=== PATIENT | female | born 1940 | race Caucasian/White ===

== ENCOUNTER 2018-03-01 19:59 | Emergency (ER) | payer MEDICARE, OTHER ==
[~2018-03-01] VITALS: Ht 149.9 cm; Wt 83.5 kg
[~2018-03-01 19:59] MED LIST: ASCO500 PO; CALCAVITDA PO; CHOL10002; Ginger250 MG; MAGCHL64ER PO; METO25ER PO; MILK THISTLE140 MG PO; MULTI VITAMIN1 EACH PO; POTCIT10 PO; TURMERIC500 M1 PO; XARELTO15 MG PO; [UNRECOGNIZED DRUG - OTHER]
[2018-03-01] MEDS ORDERED: WARF1 (20:33)
[2018-03-01 20:55] LABS: Calcium, Ionized (POC) 1.14 mmol/L (1.10-1.46); Chloride (POC) 107 mmol/L (98-108); Creatinine (POC) 0.7 mg/dL (0.6-1.0); Glucose (ISTAT POC) 95 mg/dL (70-99); Hemoglobin (POC) 15.3 g/dL (12.0-16.0); Potassium (POC) 3.9 mmol/L (3.5-5.5); Sodium (POC) 142 mmol/L (135-148); Total CO2 (POC) 23 mmol/L (21-32)
[2018-03-01 21:15] LABS: International Normalized Ratio 1.92; Prothrombin Time Results 20.4 Sec (9.7-11.5)
[2018-03-01] MEDS ORDERED: HYDR1TAB94 PO (21:43)
== END 2018-03-01 22:05 | disposition home or self-care (01) ==
LOC: ER 19:59
PROVIDERS: Emergency Medicine
DX: S32.010A Wedge compression fracture of first lumbar vertebra, initial encounter for closed fracture (principal); S22.089A Unspecified fracture of T11-T12 vertebra, initial encounter for closed fracture; S30.0XXA Contusion of lower back and pelvis, initial encounter; I48.91 Unspecified atrial fibrillation; Z79.899 Other long term (current) drug therapy; Z79.01 Long term (current) use of anticoagulants; W19.XXXA Unspecified fall, initial encounter
CPT/HCPCS: 36415; 70450; 72100; 73502; 80047; 85014; 85610; 99284

== ENCOUNTER 2021-03-12 11:56 | Emergency (ER) | payer MEDICARE, OTHER ==
[~2021-03-12] VITALS: Ht 149.9 cm; Wt 49.9 kg
[~2021-03-12 11:56] MED LIST changes: +HYDR1TAB94 PO; +WARF1
[2021-03-12 12:21] LABS: BASOPHILS ABSOLUTE AUTO 0.03 K/mm3 (0.00-0.23); BASOPHILS PERCENT AUTO 1 % (0-2); EOSINOPHILS ABSOLUTE AUTO 0.02 K/mm3 (0.00-0.68); EOSINOPHILS PERCENT AUTO 0 % (0-6); Hematocrit 45.7 % (33.0-51.0); Hemoglobin 15.1 g/dL (11.5-16.0); IMMATURE GRAN ABSOLUTE AUTO 0.01 K/mm3 (0.00-0.10); IMMATURE GRAN PERCENT AUTO 0 % (0-1); LYMPHOCYTES ABSOLUTE AUTO 1.32 K/mm3 (0.84-5.20); LYMPHOCYTES PERCENT AUTO 20 % (21-46); MONOCYTES ABSOLUTE AUTO 0.41 K/mm3 (0.16-1.47); MONOCYTES PERCENT AUTO 6 % (4-13); Mean Corpuscular HGB 29.7 pg (26.0-34.0); Mean Corpuscular Volume 90 fL (80-100); NEUTROPHILS ABSOLUTE AUTO 4.84 K/mm3 (1.96-9.15); NEUTROPHILS PERCENT AUTO 73 % (41-73); Platelet Count 329 K/mm3 (150-400); RDW Coefficient Variation 12.5 % (11.7-14.2); RDW Standard Deviation 41.1 fL (35.1-46.3); Red Blood Cell Count 5.08 M/mm3 (3.80-5.20); White Blood Cell Count 6.63 K/mm3 (4.00-11.30)
[2021-03-12 12:46] LABS: Alanine Aminotransfer (ALT/SGP 21 U/L (12-78); Albumin, Blood 3.8 g/dL (3.4-5.0); Alk Phos 55 U/L (50-136); Anion Gap 6 mmol/L (6-16); Aspartate Aminotrans (AST/SGOT 23 U/L (12-37); Bilirubin, Total 0.5 mg/dL (0.1-1.0); Blood Urea Nitrogen 15 mg/dL (8-24); Bun/Creatinine Ratio 28.6 (12.0-20.0); CO2, Blood 23 mmol/L (21-32); Calcium, Blood 8.9 mg/dL (8.5-10.1); Chloride, Blood 109 mmol/L (98-108); Creatinine, Blood 0.52 mg/dL (0.40-1.00); Globulin, Blood 3.7 g/dL (2.2-4.0); Glomerular Filtration Rate >60 (60-); Glucose, Blood 108 mg/dL (70-99); Potassium, Blood 3.8 mmol/L (3.5-5.5); Sodium, Blood 138 mmol/L (136-145); Total Protein, Blood 7.5 g/dL (6.4-8.2)
[2021-03-12 13:53] LABS: Source, Urine Clean Catch
[2021-03-12 13:57] LABS: Bilirubin, Urine Neg (Neg); Blood, Urine Neg (Neg); Glucose Qualitative, Urine Neg (Neg); Ketones, Urine 2+ (Neg); Leukocyte Esterase, Urine 1+ (Neg); Nitrite, Urine Neg (Neg); Protein, Urine Neg (Neg); Urobilinogen, Urine NORM (Normal)
[2021-03-12 14:02] LABS: Appearance, Urine Clear (Clear); Color, Urine Yellow (P-Yellow)
[2021-03-12 14:06] LABS: Red Blood Cells, Urine 0-2 /hpf (0-2)
[2021-03-12 14:07] LABS: Bacteria Many /hpf; Squamous Epithelial Cells Rare /hpf (Few)
[2021-03-12] MEDS ORDERED: ONDA4ODT MM (17:24)
== END 2021-03-12 17:43 | disposition home or self-care (01) ==
LOC: ER 11:56
PROVIDERS: Physician Assistant
DX: R10.31 Right lower quadrant pain (principal); R10.32 Left lower quadrant pain; R11.2 Nausea with vomiting, unspecified; Z79.01 Long term (current) use of anticoagulants; Z79.899 Other long term (current) drug therapy
CPT/HCPCS: 36415; 74177; 80053; 81001; 85025; 87086; 96374; 99284-25; J2405; J7030; P9612; Q9967

== ENCOUNTER 2021-12-17 14:05 | Emergency (ER) | payer MEDICARE, OTHER ==
[~2021-12-17] VITALS: Ht 147.3 cm; Wt 39.9 kg
[~2021-12-17 14:05] MED LIST changes: +ONDA4ODT MM
[2021-12-17] MEDS ORDERED: LIDO700A20 TOP (16:15)
[2021-12-17] MEDS ORDERED: Robaxin750 MG PO (16:15)
== END 2021-12-17 16:36 | disposition home or self-care (01) ==
LOC: ER 14:05
DX: M54.50 Low back pain, unspecified (principal); G89.29 Other chronic pain; I48.91 Unspecified atrial fibrillation; M81.0 Age-related osteoporosis without current pathological fracture; Z79.899 Other long term (current) drug therapy
CPT/HCPCS: 72131; 99283-25; A9270

== ENCOUNTER 2022-01-30 09:24 | Inpatient (IN) | payer MEDICARE, OTHER ==
[~2022-01-30] VITALS: Ht 142.2 cm; Wt 44.5 kg
[~2022-01-30 09:24] MED LIST changes: +LIDO700A20 TOP; +Robaxin750 MG PO; -WARF1; +WARF1 PO
[2022-01-30 11:36] LABS: BASOPHILS ABSOLUTE AUTO 0.03 K/mm3 (0.00-0.23); BASOPHILS PERCENT AUTO 0 % (0-2); EOSINOPHILS PERCENT AUTO 0 % (0-6); Hematocrit 42.2 % (33.0-51.0); Hemoglobin 13.7 g/dL (11.5-16.0); IMMATURE GRAN ABSOLUTE AUTO 0.11 K/mm3 (0.00-0.10); IMMATURE GRAN PERCENT AUTO 1 % (0-1); LYMPHOCYTES ABSOLUTE AUTO 0.68 K/mm3 (0.84-5.20); LYMPHOCYTES PERCENT AUTO 5 % (21-46); MONOCYTES ABSOLUTE AUTO 1.08 K/mm3 (0.16-1.47); MONOCYTES PERCENT AUTO 7 % (4-13); Mean Corpuscular HGB 29.6 pg (26.0-34.0); Mean Corpuscular HGB Conc 32.5 g/dL (31.5-36.5); Mean Corpuscular Volume 91 fL (80-100); NEUTROPHILS ABSOLUTE AUTO 13.19 K/mm3 (1.96-9.15); NEUTROPHILS PERCENT AUTO 87 % (41-73); Platelet Count 347 K/mm3 (150-400); RDW Coefficient Variation 12.8 % (11.7-14.2); RDW Standard Deviation 42.3 fL (35.1-46.3); Red Blood Cell Count 4.63 M/mm3 (3.80-5.20); White Blood Cell Count 15.09 K/mm3 (4.00-11.30)
[2022-01-30 11:59] LABS: Alanine Aminotransfer (ALT/SGP 28 U/L (12-78); Albumin, Blood 3.5 g/dL (3.4-5.0); Albumin/Globulin Ratio 0.9 (0.8-1.8); Alk Phos 83 U/L (50-136); Anion Gap 4 mmol/L (6-16); Aspartate Aminotrans (AST/SGOT 27 U/L (12-37); Bilirubin, Total 0.4 mg/dL (0.1-1.0); Blood Urea Nitrogen 34 mg/dL (8-24); Bun/Creatinine Ratio 68.3 (12.0-20.0); CO2, Blood 29 mmol/L (21-32); Calcium, Blood 9.3 mg/dL (8.5-10.1); Chloride, Blood 110 mmol/L (98-108); Glomerular Filtration Rate >60 (60-); Glucose, Blood 127 mg/dL (70-99); Potassium, Blood 4.3 mmol/L (3.5-5.5); Sodium, Blood 143 mmol/L (136-145); Total Protein, Blood 7.5 g/dL (6.4-8.2)
[2022-01-30 12:01] LABS: Prothrombin Time Results 39.6 Sec (9.7-11.5)
[2022-01-30 12:30] LABS: International Normalized Ratio 4.14
[2022-01-30 14:10] LABS: Influenza A, PCR NEGATIVE (NEGATIVE); Influenza B, PCR NEGATIVE (NEGATIVE); Resp Syncytial Virus, PCR NEGATIVE (NEGATIVE); SARS-Cov-2 (COVID-19) PCR, MMC NEGATIVE (NEGATIVE)
--- NOTE | 2022-01-30 14:45 | NUR ---
ARRIVAL TO UNIT FROM ED. PLEASANT & COOPERATIVE BUT FORGETFUL. DENIES PAIN, EVEN w/ REPOSITIONING. CANNOT RECALL MEDICATIONS SO WILL CALL PCP TO CLARIFY. BED ALARM SET.
[2022-01-30] MEDS ORDERED: DONEPEZIL HCL10 MG PO (15:40)
[2022-01-30] MEDS ORDERED: ALEN70 PO (15:41)
[2022-01-30] MEDS ORDERED: FAMO20 PO (15:41)
--- NOTE | 2022-01-30 19:16 | NUR ---
SHIFT SUMMARY SINCE ARRIVAL TO UNIT, HAS BEEN PLEASANT BUT NEEDING FREQ REMINDERS WHERE & WHY SHE IS HERE. DR BARRAZA CONSULTED. MEDICATED PRIOR TO TRANSPORT TO CT SCAN; OTHER THAN THAT PT HAS DENIED PAIN EVEN w/ REPOSITIONING.
[2022-01-31 04:39] LABS: Hematocrit 37.3 % (33.0-51.0); Mean Corpuscular HGB 29.4 pg (26.0-34.0); Mean Corpuscular HGB Conc 32.2 g/dL (31.5-36.5); Mean Corpuscular Volume 91 fL (80-100); Mean Platelet Volume 9.2 fL (9.1-12.4); Platelet Count 316 K/mm3 (150-400); RDW Standard Deviation 42.2 fL (35.1-46.3); Red Blood Cell Count 4.08 M/mm3 (3.80-5.20); White Blood Cell Count 11.71 K/mm3 (4.00-11.30)
[2022-01-31 04:51] LABS: International Normalized Ratio 1.37; Prothrombin Time Results 14.1 Sec (9.7-11.5)
[2022-01-31 05:04] LABS: Anion Gap 5 mmol/L (6-16); Blood Urea Nitrogen 23 mg/dL (8-24); Bun/Creatinine Ratio 43.6 (12.0-20.0); CO2, Blood 27 mmol/L (21-32); Calcium, Blood 8.6 mg/dL (8.5-10.1); Chloride, Blood 108 mmol/L (98-108); Creatinine, Blood 0.53 mg/dL (0.40-1.00); Glomerular Filtration Rate >60 (60-); Glucose, Blood 134 mg/dL (70-99); Potassium, Blood 4.3 mmol/L (3.5-5.5); Sodium, Blood 140 mmol/L (136-145)
--- NOTE | 2022-01-31 13:12 | NUR ---
patient with no c/o pain this a.m.- daughter at bedside. To surgery via bed at 1145. patient has been NPO.Toprol given as per order this a.m.
--- NOTE | 2022-01-31 13:24 | NUR ---
01/31/22 1324 Marvel Verdin PATIENT ARRIVED TO OR WITH HERNANDEZ CATH
--- NOTE | 2022-01-31 15:40 | NUR ---
PT. TO ROOM #212 FROM PACU AT 1525. DENIES PAIN. REQUEST REPOSITIONING, PILLOWS USED, TOLERATE WELL. HERNANDEZ TO GRAVITY, CLR. YELLOW. IVF INFUSING, LR. O2 ON AT 2L PER NC, VSS. CALL LIGHT IN REACH AND FAMILY MEMBER IN ROOM.
--- NOTE | 2022-01-31 18:17 | NUR ---
PT. C/O BACK PAIN AND ROXICODONE 5 MG PO GIVEN WITH FOOD. PATIENT WITH GOOD APPETITE, ATE 100% DINNER.
--- NOTE | 2022-02-01 04:12 | NUR ---
SUMMARY PT CONFUSION INCREASED DURING THE SHIFT. PT DAUGHTER STAYED THE NIGHT WITH PT AND KEPT HER CALM. PT COMPLAINED OF BACK PAIN MOSTLY AND WAS REPOSITIONED FREQUENTLY AND MEDICATED ORDERED. PT DRESSING C/D/I. PT HERNANDEZ IS DRAINING TO GRAVITY. PT CURRENTLY SLEEPING AND IN NO DISTRESS. CALL LIGHT IN REACH.
[2022-02-01 04:44] LABS: Hematocrit 36.2 % (33.0-51.0); Hemoglobin 11.3 g/dL (11.5-16.0); Mean Corpuscular HGB Conc 31.2 g/dL (31.5-36.5); Mean Corpuscular Volume 93 fL (80-100); Mean Platelet Volume 9.3 fL (9.1-12.4); Platelet Count 297 K/mm3 (150-400); RDW Coefficient Variation 12.8 % (11.7-14.2); RDW Standard Deviation 43.6 fL (35.1-46.3); White Blood Cell Count 11.58 K/mm3 (4.00-11.30)
[2022-02-01 04:56] LABS: Albumin, Blood 2.5 g/dL (3.4-5.0); Anion Gap 4 mmol/L (6-16); Blood Urea Nitrogen 22 mg/dL (8-24); Bun/Creatinine Ratio 37.3 (12.0-20.0); CO2, Blood 28 mmol/L (21-32); Calcium, Blood 8.6 mg/dL (8.5-10.1); Chloride, Blood 109 mmol/L (98-108); Creatinine, Blood 0.59 mg/dL (0.40-1.00); Glomerular Filtration Rate >60 (60-); Glucose, Blood 123 mg/dL (70-99); Phosphorus, Blood 3.2 mg/dL (2.5-4.9); Potassium, Blood 4.4 mmol/L (3.5-5.5); Sodium, Blood 141 mmol/L (136-145)
[2022-02-01 04:58] LABS: International Normalized Ratio 1.04; Prothrombin Time Results 10.9 Sec (9.7-11.5)
[2022-02-01 12:59] LABS: Influenza A, PCR NEGATIVE (NEGATIVE); Influenza B, PCR NEGATIVE (NEGATIVE); Resp Syncytial Virus, PCR NEGATIVE (NEGATIVE); SARS-Cov-2 (COVID-19) PCR, MMC NEGATIVE (NEGATIVE)
--- NOTE | 2022-02-01 13:36 | NUR ---
Spiritual Care Visit. Pt. is awake in bed, and welcomes my visit. Pt. is unsettled about the delay in her discharge. Pt. expects to be released to a local for therapy. At times Pt. seemed confused. Listen empathetically. Pt. welcomed the opportunity for pastoral prayer. Prayed for Pt. Pt. verbalized gratittude for the spiritual visit.
--- NOTE | 2022-02-01 15:46 | NUR ---
report phoned to [facility] at [facility]
--- NOTE | 2022-02-01 16:46 | NUR ---
1645 DISCHARGED VIA NON EMERGENCY TRANSPORT TO [facility] ACCOMPANIED BY THIERRY QUISPE.
== END 2022-02-01 17:00 | DRG 481 ==
LOC: ER 09:24 → SURS 12:16
PROVIDERS: Emergency Medicine; Internal Medicine; Orthopaedic Surgery; ADMIT Internal Medicine
PROC: 0QH634Z Insertion of Internal Fixation Device into Right Upper Femur, Percutaneous Approach (ICD-10-PCS; principal; 2022-01-31 12:30)
DX: S72.141A Displaced intertrochanteric fracture of right femur, initial encounter for closed fracture (principal); I48.20 Chronic atrial fibrillation, unspecified; Z20.822 Contact with and (suspected) exposure to COVID-19; M81.0 Age-related osteoporosis without current pathological fracture; R54 Age-related physical debility; F03.90 Unspecified dementia, unspecified severity, without behavioral disturbance, psychotic disturbance, mood disturbance, and anxiety; K21.9 Gastro-esophageal reflux disease without esophagitis; K58.9 Irritable bowel syndrome, unspecified; M54.2 Cervicalgia; I48.0 Paroxysmal atrial fibrillation; R79.1 Abnormal coagulation profile; W06.XXXA Fall from bed, initial encounter; Y92.009 Unspecified place in unspecified non-institutional (private) residence as the place of occurrence of the external cause; Z79.899 Other long term (current) drug therapy; Z79.01 Long term (current) use of anticoagulants; Z79.83 Long term (current) use of bisphosphonates; Z79.891 Long term (current) use of opiate analgesic
CPT/HCPCS: 0241U; 36415; 51702; 70450; 72125; 73502; 73552; 73700; 76377; 80048; 80053; 80069; 85025; 85027; 85610; 93005; 93010; 97110; 97162; 97166; 97530; 99285-25; A9270; C1713; J0690; J1100; J2001; J2370; J2405; J2704; J3010; J7120

== ENCOUNTER 2022-04-07 09:45 | Emergency (ER) | payer MEDICARE, OTHER ==
[~2022-04-07] VITALS: Ht 149.9 cm; Wt 38.1 kg
[~2022-04-07 09:45] MED LIST changes: +ALEN70 PO; +DONEPEZIL HCL10 MG PO; +FAMO20 PO
[2022-04-07] MEDS ORDERED: MIRT15 PO (10:26)
[2022-04-07] MEDS ORDERED: Coumadin2 MG PO (10:26)
[2022-04-07 12:58] LABS: International Normalized Ratio 1.19; Prothrombin Time Results 12.4 Sec (9.7-11.5)
== END 2022-04-07 13:25 | disposition home or self-care (01) ==
LOC: ER 09:45
PROVIDERS: Emergency Medicine
DX: S70.01XA Contusion of right hip, initial encounter (principal); W19.XXXA Unspecified fall, initial encounter; I48.91 Unspecified atrial fibrillation; Z79.01 Long term (current) use of anticoagulants; Z79.899 Other long term (current) drug therapy
CPT/HCPCS: 36415; 73502; 85610

== ENCOUNTER 2022-07-21 17:24 | Inpatient (IN) | payer MEDICARE, OTHER ==
[~2022-07-21] VITALS: Ht 147.3 cm; Wt 43.1 kg
[~2022-07-21 17:24] MED LIST changes: +Coumadin2 MG PO; +MIRT15 PO
[2022-07-21 18:15] LABS: BASOPHILS ABSOLUTE AUTO 0.05 K/mm3 (0.00-0.23); BASOPHILS PERCENT AUTO 0 % (0-2); EOSINOPHILS PERCENT AUTO 2 % (0-6); Hematocrit 39.5 % (33.0-51.0); IMMATURE GRAN ABSOLUTE AUTO 0.16 K/mm3 (0.00-0.10); IMMATURE GRAN PERCENT AUTO 1 % (0-1); LYMPHOCYTES ABSOLUTE AUTO 1.81 K/mm3 (0.84-5.20); LYMPHOCYTES PERCENT AUTO 13 % (21-46); MONOCYTES ABSOLUTE AUTO 0.91 K/mm3 (0.16-1.47); MONOCYTES PERCENT AUTO 7 % (4-13); Mean Corpuscular HGB Conc 32.9 g/dL (31.5-36.5); Mean Corpuscular Volume 91 fL (80-100); Mean Platelet Volume 9.5 fL (9.1-12.4); NEUTROPHILS ABSOLUTE AUTO 10.45 K/mm3 (1.96-9.15); NEUTROPHILS PERCENT AUTO 77 % (41-73); Platelet Count 312 K/mm3 (150-400); RDW Coefficient Variation 13.8 % (11.7-14.2); RDW Standard Deviation 46.4 fL (35.1-46.3); Red Blood Cell Count 4.34 M/mm3 (3.80-5.20); White Blood Cell Count 13.58 K/mm3 (4.00-11.30)
[2022-07-21 18:26] LABS: Albumin, Blood 3.3 g/dL (3.4-5.0); Albumin/Globulin Ratio 0.9 (0.8-1.8); Bilirubin, Total 0.2 mg/dL (0.1-1.0); Bun/Creatinine Ratio 39.8 (12.0-20.0); Calcium, Blood 9.4 mg/dL (8.5-10.1); Creatinine, Blood 0.63 mg/dL (0.40-1.00); Globulin, Blood 3.6 g/dL (2.2-4.0); Potassium, Blood 4.3 mmol/L (3.5-5.5); Total Protein, Blood 6.9 g/dL (6.4-8.2)
[2022-07-21 18:59] LABS: International Normalized Ratio 3.15; Prothrombin Time Results 30.7 Sec (9.7-11.5)
[2022-07-22 00:26] LABS: Hematocrit 36.1 % (33.0-51.0); Hemoglobin 11.6 g/dL (11.5-16.0)
[2022-07-22 04:52] LABS: Hemoglobin 10.4 g/dL (11.5-16.0)
[2022-07-22 05:20] LABS: International Normalized Ratio 1.22
[2022-07-22 05:25] LABS: Prothrombin Time Results 12.6 Sec (9.7-11.5)
[2022-07-22 07:19] LABS: Hematocrit 31.5 % (33.0-51.0); Hemoglobin 10.4 g/dL (11.5-16.0)
[2022-07-22 09:47] LABS: SARS-Cov-2 (COVID-19) PCR, MMC NEGATIVE (NEGATIVE)
[2022-07-22 11:43] LABS: Hematocrit 33.5 % (33.0-51.0); Hemoglobin 10.8 g/dL (11.5-16.0)
== END 2022-07-22 15:47 | disposition short-term general hospital (02) | DRG 536 ==
LOC: ER 17:24 → ERHOLD 23:55
PROVIDERS: Emergency Medicine; Nurse Practitioner Acute Care; ADMIT Family Medicine
DX: S32.412A Displaced fracture of anterior wall of left acetabulum, initial encounter for closed fracture (principal); F11.20 Opioid dependence, uncomplicated; I48.20 Chronic atrial fibrillation, unspecified; W18.30XA Fall on same level, unspecified, initial encounter; Z79.01 Long term (current) use of anticoagulants; D72.828 Other elevated white blood cell count; Z20.822 Contact with and (suspected) exposure to COVID-19; F03.90 Unspecified dementia, unspecified severity, without behavioral disturbance, psychotic disturbance, mood disturbance, and anxiety; Z66 Do not resuscitate; G89.29 Other chronic pain; Z90.710 Acquired absence of both cervix and uterus; Z79.899 Other long term (current) drug therapy; S30.0XXA Contusion of lower back and pelvis, initial encounter; S50.12XA Contusion of left forearm, initial encounter; S00.03XA Contusion of scalp, initial encounter
CPT/HCPCS: 36430; 51702; 70450; 71250; 72125; 73502; 74176; 80053; 85014; 85018; 85025; 85610; 86900; 86901; 93005; 93010; 96365-59; 96375-59; 99285-25; A9270; J2405; J3010; J3430; J7030; P9059; U0004

== ENCOUNTER 2022-11-07 23:02 | Emergency (ER) | payer MEDICARE, OTHER ==
[~2022-11-07] VITALS: Ht 147.3 cm; Wt 45.4 kg
== END 2022-11-08 01:45 | disposition home or self-care (01) ==
LOC: ER 23:02
DX: S70.01XA Contusion of right hip, initial encounter (principal); W18.30XA Fall on same level, unspecified, initial encounter; F03.90 Unspecified dementia, unspecified severity, without behavioral disturbance, psychotic disturbance, mood disturbance, and anxiety; I48.91 Unspecified atrial fibrillation; Z79.899 Other long term (current) drug therapy; Z79.01 Long term (current) use of anticoagulants
CPT/HCPCS: 73502; 99283-25

== ENCOUNTER 2022-11-15 17:09 | Emergency (ER) | payer MEDICARE, OTHER ==
[~2022-11-15] VITALS: Ht 157.5 cm; Wt 52.2 kg
[2022-11-15 18:17] LABS: International Normalized Ratio 1.71; Prothrombin Time Results 17.3 Sec (9.7-11.5)
== END 2022-11-15 19:25 | disposition home or self-care (01) ==
LOC: ER 17:09
PROVIDERS: Emergency Medicine
DX: S00.83XA Contusion of other part of head, initial encounter (principal); F03.90 Unspecified dementia, unspecified severity, without behavioral disturbance, psychotic disturbance, mood disturbance, and anxiety; W19.XXXA Unspecified fall, initial encounter; Z79.01 Long term (current) use of anticoagulants; Z79.899 Other long term (current) drug therapy
CPT/HCPCS: 70450; 85610; 99284-25

== ENCOUNTER → 2023-07-10 | Outpatient (CLI) | payer MEDICARE, OTHER ==
[2023-07-10 17:27] LABS: International Normalized Ratio 2.99; Prothrombin Time Results 29.5 Sec (9.7-11.5)
== END ==
LOC: LAB 15:25 → LAB SHORT 15:25
PROVIDERS: Legal Medicine
DX: I48.19 Other persistent atrial fibrillation (principal)
CPT/HCPCS: 85610

== ENCOUNTER → 2023-08-09 | Outpatient (CLI) | payer MEDICARE, OTHER ==
[2023-08-09 20:02] LABS: International Normalized Ratio 3.18; Prothrombin Time Results 31.3 Sec (9.7-11.5)
== END ==
LOC: LAB 16:27 → LAB SHORT 16:27
PROVIDERS: Legal Medicine
DX: Z51.81 Encounter for therapeutic drug level monitoring (principal); I48.19 Other persistent atrial fibrillation
CPT/HCPCS: 85610

== ENCOUNTER → 2023-08-26 | Outpatient (CLI) | payer MEDICARE, OTHER ==
[2023-08-26 14:29] LABS: International Normalized Ratio 2.36; Prothrombin Time Results 23.6 Sec (9.7-11.5)
== END ==
LOC: LAB SHORT 11:29 → LAB 11:29
PROVIDERS: Legal Medicine
DX: Z51.81 Encounter for therapeutic drug level monitoring (principal); I48.19 Other persistent atrial fibrillation; Z79.899 Other long term (current) drug therapy
CPT/HCPCS: 85610

== ENCOUNTER → 2023-10-03 | Outpatient (CLI) | payer MEDICARE, OTHER ==
[2023-10-03 15:06] LABS: International Normalized Ratio 2.19
== END | disposition home or self-care (01) ==
LOC: LAB 11:35 → LAB SHORT 11:35
PROVIDERS: Legal Medicine
DX: I48.19 Other persistent atrial fibrillation (principal)
CPT/HCPCS: 85610

== ENCOUNTER → 2023-11-19 | Outpatient (CLI) | payer MEDICARE, OTHER ==
[2023-11-19 13:39] LABS: Source, Urine Clean Catch
[2023-11-19 14:35] LABS: Appearance, Urine Cloudy (Clear); Bilirubin, Urine Neg (Neg); Blood, Urine 1+ (Neg); Color, Urine Yellow (P-Yellow); Glucose Qualitative, Urine Neg (Neg); Ketones, Urine Neg (Neg); Leukocyte Esterase, Urine Neg (Neg); Nitrite, Urine Neg (Neg); Protein, Urine Neg (Neg); Urobilinogen, Urine NORM (Normal)
[2023-11-19 14:51] LABS: Bacteria Many /hpf; Squamous Epithelial Cells Few /hpf (Few)
[2023-11-19 14:52] LABS: Amorphous Light (0-Heavy)
== END | disposition home or self-care (01) ==
LOC: LAB 12:42 → LAB SHORT 12:42
PROVIDERS: Legal Medicine
DX: N39.0 Urinary tract infection, site not specified (principal)
CPT/HCPCS: 81001; 87086

== ENCOUNTER → 2023-12-03 | Outpatient (CLI) | payer MEDICARE, OTHER ==
[2023-12-03 17:39] LABS: International Normalized Ratio 2.57; Prothrombin Time Results 25.6 Sec (9.7-11.5)
== END ==
LOC: LAB SHORT 16:41 → LAB 16:41
PROVIDERS: Legal Medicine
DX: R79.1 Abnormal coagulation profile (principal)
CPT/HCPCS: 85610

== ENCOUNTER → 2024-03-04 | Outpatient (CLI) | payer MEDICARE, OTHER ==
[2024-03-04 13:29] LABS: International Normalized Ratio 2.82; Prothrombin Time Results 27.9 Sec (9.7-11.5)
== END ==
LOC: LAB 11:56 → LAB SHORT 11:56
PROVIDERS: Legal Medicine
DX: Z51.81 Encounter for therapeutic drug level monitoring (principal); I48.91 Unspecified atrial fibrillation; Z79.01 Long term (current) use of anticoagulants
CPT/HCPCS: 85610

== ENCOUNTER → 2024-05-13 | Outpatient (CLI) | payer MEDICARE, OTHER ==
[~2024-05-13] MED LIST changes: +ACET500 PO; +ALPR.25 PO; +CEPH500 PO; +CIME400 PO; +DIGOX125 MC1 PO; +Seroquel Xr50 MG PO; +WARF3 PO
[2024-05-13 16:08] LABS: Prothrombin Time Results 88.8 Sec (9.7-11.5)
[2024-05-13 20:47] LABS: International Normalized Ratio 9.83
== END | disposition home or self-care (01) ==
LOC: LAB 12:03 → LAB SHORT 12:03
PROVIDERS: Legal Medicine
DX: I48.19 Other persistent atrial fibrillation (principal)
CPT/HCPCS: 85610

== ENCOUNTER → 2024-06-01 | Outpatient (CLI) | payer MEDICARE, OTHER ==
[2024-06-01 14:39] LABS: International Normalized Ratio 0.98; Prothrombin Time Results 10.5 Sec (9.7-11.5)
== END ==
LOC: LAB SHORT 13:53 → LAB 13:53
PROVIDERS: Legal Medicine
DX: I48.19 Other persistent atrial fibrillation (principal); Z79.01 Long term (current) use of anticoagulants
CPT/HCPCS: 85610

== ENCOUNTER → 2024-07-14 | Outpatient (CLI) | payer MEDICARE, OTHER ==
[2024-07-14 18:16] LABS: International Normalized Ratio 4.94
== END ==
LOC: LAB SHORT 15:10 → LAB 15:10
PROVIDERS: Legal Medicine
DX: Z79.899 Other long term (current) drug therapy (principal); I48.19 Other persistent atrial fibrillation
CPT/HCPCS: 85610

== ENCOUNTER → 2024-08-21 | Outpatient (CLI) | payer MEDICARE, OTHER ==
[2024-08-21 13:30] LABS: International Normalized Ratio 1.94; Prothrombin Time Results 19.8 Sec (9.7-11.5)
== END ==
LOC: LAB SHORT 11:27 → LAB 11:27
PROVIDERS: Legal Medicine
DX: Z51.81 Encounter for therapeutic drug level monitoring (principal); I48.91 Unspecified atrial fibrillation; Z79.899 Other long term (current) drug therapy; Z79.01 Long term (current) use of anticoagulants
CPT/HCPCS: 85610

== ENCOUNTER → 2024-11-04 | Outpatient (CLI) | payer MEDICARE, OTHER ==
[2024-11-04 12:06] LABS: International Normalized Ratio 4.72
== END ==
LOC: LAB 10:44 → LAB SHORT 10:44
PROVIDERS: Legal Medicine
DX: I48.19 Other persistent atrial fibrillation (principal); Z79.899 Other long term (current) drug therapy
CPT/HCPCS: 85610

== ENCOUNTER → 2024-11-30 | Outpatient (CLI) | payer MEDICARE, OTHER ==
[2024-11-30 13:34] LABS: International Normalized Ratio 1.07; Prothrombin Time Results 11.4 Sec (9.7-11.5)
== END | disposition home or self-care (01) ==
LOC: LAB SHORT 11:24 → LAB 11:24
PROVIDERS: Legal Medicine
DX: I48.19 Other persistent atrial fibrillation (principal); Z79.899 Other long term (current) drug therapy
CPT/HCPCS: 85610

== ENCOUNTER → 2025-02-18 | Outpatient (CLI) | payer MEDICARE, OTHER ==
[2025-02-18 17:37] LABS: International Normalized Ratio 3.34; Prothrombin Time Results 32.7 Sec (9.7-11.5)
== END ==
LOC: LAB SHORT 15:42 → LAB 15:42
PROVIDERS: Legal Medicine
DX: Z51.81 Encounter for therapeutic drug level monitoring (principal); Z79.899 Other long term (current) drug therapy; Z79.01 Long term (current) use of anticoagulants
CPT/HCPCS: 85610

== ENCOUNTER → 2025-10-26 | Outpatient (CLI) | payer MEDICARE, OTHER ==
[2025-10-26 19:19] LABS: Prothrombin Time Results 42.0 Sec (9.7-11.5)
== END ==
LOC: LAB 13:12 → LAB SHORT 13:12
PROVIDERS: Legal Medicine
DX: Z51.81 Encounter for therapeutic drug level monitoring (principal); I48.19 Other persistent atrial fibrillation
CPT/HCPCS: 85610